=== PATIENT | male | born 1955 | race Caucasian/White ===

== ENCOUNTER → 2017-01-06 | Outpatient (CLI) | payer OTHER, BC ==
[~2017-01-06] MED LIST: ANTI-ANXIETY MED; ELOCON OINT45 GM EXT; LITHIUM PO; SEROQUEL25 MG PO
--- NOTE | ~2017-01-06 | CT2 ---
[facility] A Service of [facility] RADIOLOGY TEXT RESULTS PATIENT: ZIA NICHOLSON LOCATION: [facility] : 59 UNIT #: [id number] AGE: [address]: Faustino Delarosa MD SEX: M ORDER DR: [id number] [facility] [address] [place], [place] [address] [id number] O MR#: [id number] Acc #: [id number] NAME: ZIA NICHOLSON : 1955 SEX: M STUDY DATE/TIME: 01/06/2017 14:26 UNIT: [facility]AT ROOM: STUDY DESCRIPTION: CT Abd and Pelv W Cont Attending Physician: Faustino Delarosa M.D. Referring Physician: Faustino Delarosa M.D. Ordering Physician: Faustino Delarosa M.D. Primary Care Physician: Manuel Motley M.D. MEDICAL IMAGING REPORT This report is preliminary unless electronic signature is present EXAM CT abdomen and pelvis with contrast INDICATIONS Right-sided abdominal pain for the past 5-6 years. TECHNIQUE Contrast-enhanced CT of the abdomen and pelvis. This CT exam was performed with one or more of the following radiation dose reduction techniques: automatic exposure control, adjustment of mA and/or kV according to patient size, and iterative reconstruction. COMPARISON 09/30/2014. FINDINGS ABDOMEN WITH CONTRAST: Included lung bases clear. The liver is borderline enlarged at 18.7 cm. Probable hepatic steatosis. Cirrhotic morphology of the liver. Spleen measures 18.1 cm. There is no liver or splenic mass on this single phase study. Small recannulated paraumbilical vein. Small non-obstructing calculi in both kidneys. Adrenal glands, pancreas unremarkable. Previous cholecystectomy. There are a few scattered uncomplicated colonic diverticula. Appendix is normal. Bowel loops are non-dilated. PELVIS WITH CONTRAST: No pelvic mass or fluid. No aggressive appearing bone lesion. [facility] A Service of [facility] RADIOLOGY TEXT RESULTS PATIENT: ZIA NICHOLSON LOCATION: [facility] [place] : 59 UNIT #: [id number] AGE: [address]: Faustino Delarosa MD SEX: M ORDER DR: IMPRESSION 1. No acute findings. 2. Cirrhotic morphology of the liver, splenomegaly and probable mild steatosis. 3. Small non-obstructing calculi in both kidneys. Dictated by... Jeff Servin M.D. THIS IS AN ELECTRONICALLY VERIFIED REPORT Jeff Servin M.D. at 01/07/2017 12:10 PM EED/pcl TD: 01/07/2017 03:34 JOB #: [id number] MEDICAL IMAGING REPORT Page 1 of 1 COPY
[2017-01-06 14:06] LABS: POC - CREATININE 1.41 mg/dL (0.64-1.27)
== END | disposition home or self-care (01) ==
LOC: CCAT 12:58
PROVIDERS: Internal Medicine
DX: R10.11 Right upper quadrant pain (principal); K74.60 Unspecified cirrhosis of liver; N20.0 Calculus of kidney; R16.1 Splenomegaly, not elsewhere classified
CPT/HCPCS: 74177; 82565; Q9967